=== PATIENT | female | born 1985 | race Caucasian/White ===

== ENCOUNTER → 2017-03-15 | Day surgery (SDC) | payer OTHER ==
[~2017-03-15] MED LIST: BCP; FLEXERIL PO; LORTAB 5/500 TA1 TA2 PO; MACROBID100 MG PO; NAPROSYN PO; PRENATAL MULITV1 TAB PO
--- NOTE | ~2017-03-15 | OR ---
Unit #: [id number] #: [id number] Patient: SAMMY HER [id number] [address] [address] [id number] MR#: [id number] NAME: SAMMY HER ROOM: Date of Procedure: 03/15/2017 Admission Date: 03/15/2017 Surgeon: Cheng Joyce M.D. : 1985 Attending Physician: Cheng Joyce M.D. Primary Care Physician: Lissett Goodwin A.P.R.N. OPERATIVE REPORT PREOPERATIVE DIAGNOSIS Incarcerated ventral hernia at umbilicus. POSTOPERATIVE DIAGNOSES 1. Incarcerated ventral hernia at umbilicus. 2. Epigastric hernia. PROCEDURES PERFORMED 1. Laparoscopic ventral hernia repair of incarcerated ventral hernia 2 cm. 2. Laparoscopic ventral hernia repair of incarcerated epigastric ventral hernia 1 cm. 3. Placement of 4 x 6 laparoscopic Ventralight mesh. MAINSTREAMING FACILITATOR Micheal Merino M.D. ANESTHESIA General anesthesia. ESTIMATED BLOOD LOSS Minimal. IV FLUIDS 500 crystalloid. COMPLICATIONS None. INDICATIONS FOR PROCEDURE The patient is a 31-year-old with an umbilical hernia consistent with incarcerated ventral hernia, also questionable epigastric hernia. DESCRIPTION OF PROCEDURE The patient was taken to the operating theater and placed in supine position. General anesthesia was induced. The abdomen was prepped and draped. A 5-mm Optiview trocar was placed into the left upper quadrant without difficulty. The abdomen was insufflated to 15 mmHg with CO2. Under direct vision, I placed left lower quadrant 10 mm. The patient was found to have 2 cm defect at the umbilicus with incarcerated omentum. This was reduced. I took down the falciform ligament. I identified a 1 cm diameter hernia in the epigastric region. A 4 x 6 Ventralight mesh was then placed. This was held in place with single-stranded Vicryl sutures. Unit #: [id number] #: [id number] Patient: SAMMY HER This was secured with SorbaFix Tacker with each tack being 1.5 cm from previous tack. This covered the defect by at least 5 cm in all circumference. Hemostasis was adequate. I removed the ports under direct vision and closed with 4-0 Vicryl. The sutures were closed at skin level. The patient tolerated the procedure well and sent to recovery room in good condition. Dictated by... Mckayla Valentin/thomas TD: 03/15/2017 20:06 JOB #: [id number] OPERATIVE REPORT Page 1 of 1 X Cheng Joyce MD X PROCEDURE OPERATIVE NOTE
== END | disposition home or self-care (01) ==
LOC: CSUR 02-26 09:30
DX: K43.6 Other and unspecified ventral hernia with obstruction, without gangrene (principal); Z98.890 Other specified postprocedural states; Z82.49 Family history of ischemic heart disease and other diseases of the circulatory system; Z83.3 Family history of diabetes mellitus; Z82.61 Family history of arthritis
CPT/HCPCS: 84703; C1781; J0131; J0330; J0690; J1100; J1644; J2250; J2405; J3010